=== PATIENT | female | born 1965 | race Caucasian/White ===

== ENCOUNTER → 2017-01-04 | Outpatient (CLI) | payer BC, OTHER ==
[~2017-01-04] MED LIST: LEVO88TA PO; MISCCAP80 PO; MULT-506 PO
--- NOTE | 2017-01-04 16:07 | DIAGNOSTIC IMAGING REPORT ---
LEFT KNEE 4 OR MORE CLINICAL HISTORY: F/U POST LEFT KNEE ARTHROSCOPY COMPARISON STUDY: Left knee 03/16/2016. FINDINGS: 3 views of the left knee and AP standing view of the bilateral knees. No fracture or dislocation. Cartilage spaces are maintained for age. Soft tissues are unremarkable. No significant knee effusion. IMPRESSION: Unremarkable left knee. Electronically signed by: Paul Rebollar M.D. 01/04/2017 4:06 PM Dictated Date/Time: 01/04/2017 4:05 PM
== END | disposition home or self-care (01) ==
LOC: C.RDSM 15:45
PROVIDERS: ATTEND Physician Assistant
DX: Z98.890 Other specified postprocedural states (principal); M25.562 Pain in left knee